=== PATIENT | male | born 2000 | race African-American/Black ===

== ENCOUNTER 2020-12-03 07:01 | Day surgery (SDC) | payer OTHER ==
[~2020-12-03] VITALS: Ht 185.4 cm; Wt 102.7 kg
[~2020-12-03 07:01] MED LIST: LIDOCAINE 1% MDV 20ML VIAL SQ PRN; LR 1,000 ML IV ONE
[2020-12-03] MEDS ORDERED: propofoL 200 MG/20 ML VIAL As Ordered ONE ×2 (08:07→09:33)
[2020-12-03] MEDS ORDERED: LIDOCAINE 2% 100MG/5ML SDV (FOR ANES.) As Ordered ONE (08:07)
[2020-12-03] MEDS ORDERED: ROCURONIUM BROMIDE 50 MG/5 ML VIAL As Ordered ONE (08:07)
[2020-12-03] MEDS ORDERED: dexameTHASONE 4 MG/ML 1ML VIAL (J1100 PER 1MG) As Ordered ONE (08:08)
[2020-12-03] MEDS ORDERED: MIDAZOLAM INJ 2MG/2ML VIAL (J2250 PER 1MG) As Ordered ONE (08:08)
[2020-12-03] MEDS ORDERED: fentaNYL 100 MCG/2 ML INJECTION (J3010) As Ordered ONE ×2 (08:08→09:59)
[2020-12-03] MEDS ORDERED: ONDANSETRON 4MG/2ML VIAL As Ordered ONE (08:08)
[2020-12-03] MEDS ORDERED: SUGAMMADEX SODIUM 500 MG/5 ML VIAL (BRIDION) As Ordered ONE (08:09)
[2020-12-03] MEDS ORDERED: LIDOCAINE W/EPINEPHRINE 1% 20ML VIAL As Ordered ONE (08:49)
[2020-12-03] MEDS ORDERED: BUPIVACAINE/EPIN 0.5% 30 ML VIAL As Ordered ONE (08:50)
[2020-12-03] MEDS ORDERED: ACETAMINOPHEN 1000MG 100ML IV BTL (OFIRMEV) (J0131 PER 10MG) As Ordered ONE (09:17)
[2020-12-03] MEDS ORDERED: LR 1,000 ML IV SCH ×2 (10:00)
[2020-12-03] MEDS ORDERED: NORCO, ANEXSIA 5/325MG TABLET (HYDROcodone/ACETAMINOPHEN) PO PRN (10:00)
[2020-12-03] MEDS ORDERED: METOCLOPRAMIDE INJ 10MG/2ML VIAL (J2765 PER 1) IV PRN (10:00)
[2020-12-03] MEDS ORDERED: PERCOCET 5MG/325MG TAB PO PRN (10:00)
[2020-12-03] MEDS ORDERED: ONDANSETRON 4MG/2ML VIAL IV PRN (10:00)
[2020-12-03] MEDS: fentaNYL 100 MCG/2 ML INJECTION (J3010) IV PRN ×4 (10:01→10:24)
[2020-12-03] MEDS ORDERED: oxyCODONE 5MG TAB PO ONE (11:05)
--- NOTE | 2020-12-03 13:43 | RO ---
OPERATIVE NOTE DATE OF OPERATION: 12/03/2020 PREOPERATIVE DIAGNOSIS: Chronic tonsillitis. POSTOPERATIVE DIAGNOSIS: Chronic tonsillitis. PROCEDURE: Tonsillectomy. SURGEON: EDWIN OTERO MD DESCRIPTION OF PROCEDURE: Under general anesthesia, the patient was intubated and Harrell-Kelvin mouth gag was inserted. The tonsil area was infiltrated with lidocaine, Epinephrine and Marcaine. Using the cautery, I dissected the tonsil free from its bed on both sides. Cautery was used to cauterize vessels that were seen. The patient tolerated the procedure well. No blood loss. DISPOSITION: The patient was extubated and transferred to the recovery room in excellent condition.
[2020-12-03 14:20] VITALS: BP 120/72
== END 2020-12-03 14:33 | disposition home or self-care (01) ==
LOC: M SDC 07:01
PROVIDERS: ATTEND Otolaryngology
DX: J03.91 Acute recurrent tonsillitis, unspecified (principal); F17.290 Nicotine dependence, other tobacco product, uncomplicated; Z88.8 Allergy status to other drugs, medicaments and biological substances; Z88.1 Allergy status to other antibiotic agents; Z88.2 Allergy status to sulfonamides
CPT/HCPCS: 42826; 88302; J0131; J1100; J2250; J2405; J3010

== ENCOUNTER 2022-07-29 14:33 | Emergency (ER) | payer OTHER ==
[~2022-07-29] VITALS: Ht 185.4 cm; Wt 122.2 kg
[2022-07-29] MEDS ORDERED: LIDOCAINE 2% MDV 20ML VIAL As Ordered ONE (15:19)
[2022-07-29] MEDS ORDERED: NEOSPORIN OINT 0.9 GM PKT TOP ONE (15:20)
[2022-07-29] MEDS ORDERED: LIDOCAINE 2% MDV 20ML VIAL SC ONE (15:20)
[2022-07-29] MEDS ORDERED: CEPH500C PO (15:45)
[2022-07-29 16:15] VITALS: BP 124/78; TEMP 97.8; O2SAT 98
== END 2022-07-29 16:18 | disposition home or self-care (01) ==
LOC: M ED 14:33
DX: S61.310A Laceration without foreign body of right index finger with damage to nail, initial encounter (principal); Y28.9XXA Contact with unspecified sharp object, undetermined intent, initial encounter; Y92.009 Unspecified place in unspecified non-institutional (private) residence as the place of occurrence of the external cause; Y93.89 Activity, other specified; Y99.8 Other external cause status

== ENCOUNTER → 2023-04-14 | Outpatient (CLI) | payer OTHER ==
[~2023-04-14] MED LIST changes: +CEPH500C PO; -LIDOCAINE 1% MDV 20ML VIAL SQ PRN; -LR 1,000 ML IV ONE
== END ==
LOC: M SOG 07:50
PROVIDERS: ATTEND Physician Assistant
DX: M79.641 Pain in right hand (principal)

== ENCOUNTER 2023-04-20 09:48 | Day surgery (SDC) | payer OTHER ==
[~2023-04-20] VITALS: Ht 185.4 cm; Wt 127.3 kg
[2023-04-20] MEDS ORDERED: LIDOCAINE 1% SDV 5ML VIAL SC PRN (10:45)
[2023-04-20] MEDS ORDERED: LR 1,000 ML IV SCH ×2 (10:45→15:05)
[2023-04-20] MEDS ORDERED: ceFAZolin SOD 2 GM in IV 1 EA IV ONE (12:00)
[2023-04-20] MEDS ORDERED: ceFAZolin SOD 1 GM in D5W MINI-BAG PLUS 50 ML IV ONE (12:00)
[2023-04-20] MEDS ORDERED: MIDAZOLAM INJ 2MG/2ML VIAL As Ordered ONE (13:25)
[2023-04-20] MEDS ORDERED: fentaNYL 100 MCG/2 ML INJECTION As Ordered ONE (13:25)
[2023-04-20] MEDS ORDERED: propofoL 200 MG/20 ML VIAL As Ordered ONE (13:26)
[2023-04-20] MEDS ORDERED: KETAMINE HCL 200MG/20ML VIAL As Ordered ONE (13:29)
[2023-04-20] MEDS ORDERED: GLYCOPYRROLATE INJ 0.2 MG/ML 2 ML VIAL As Ordered ONE (13:31)
[2023-04-20] MEDS ORDERED: ONDANSETRON 4MG 2ML VIAL IV PRN (15:05)
[2023-04-20] MEDS ORDERED: fentaNYL 100 MCG/2 ML INJECTION IV PRN (15:05)
[2023-04-20] MEDS ORDERED: METOCLOPRAMIDE INJ 10MG/2ML VIAL IV PRN (15:05)
[2023-04-20] MEDS ORDERED: PERCOCET PO (15:22)
[2023-04-20] MEDS: HYDROMORPHONE HCL 0.5 MG/ 0.5 ML SYRINGE IV PRN (15:31)
[2023-04-20] MEDS: oxyCODONE 5MG TAB PO PRN (15:36)
[2023-04-20 16:20] VITALS: BP 136/98; TEMP 98.4; O2SAT 96
== END 2023-04-20 16:38 | disposition home or self-care (01) ==
LOC: M SDC 09:48
PROVIDERS: ATTEND Orthopaedic Surgery Hand Surgery
DX: S66.32 Laceration of extensor muscle, fascia and tendon of other and unspecified finger at wrist and hand level (principal); X58.XXXS Exposure to other specified factors, sequela; M20.021 Boutonniere deformity of right finger(s); L91.0 Hypertrophic scar; D55.0 Anemia due to glucose-6-phosphate dehydrogenase [G6PD] deficiency; F17.290 Nicotine dependence, other tobacco product, uncomplicated
CPT/HCPCS: 26426; J1170; J2250; J3010